=== PATIENT | male | born 1970 | race African-American/Black ===

== ENCOUNTER 2022-02-01 14:36 | Inpatient (IN) | payer MEDICARE, MEDICAID ==
[~2022-02-01] VITALS: Ht 175.3 cm; Wt 72.1 kg
[~2022-02-01 14:36] MED LIST: CHOL100018 PO; DIVA-112 PO; METO50 PO; OLAN10TA74 PO; OMEG-12 PO; SIMV-261 PO
[2022-02-01] MEDS ORDERED: DIVA-80 PO (18:57)
[2022-02-01] MEDS ORDERED: OLAN10TA74 PO (18:57)
[2022-02-01] MEDS ORDERED: LORazepam 2 MG TABLET PO PRN (20:30)
[2022-02-01] MEDS ORDERED: HALOPERIDOL 5 MG TABLET PO PRN (20:30)
[2022-02-01] MEDS ORDERED: CHOL25TA4 PO (20:31)
[2022-02-01] MEDS: ZOLPIDEM TARTRATE 10 MG TABLET PO PRN (21:58)
[2022-02-01 22:00] VITALS: BP 131/98
[2022-02-01] MEDS ORDERED: PNEUMOCOCCAL VACCINE POLYVALENT 0.5 ML VIAL [PPSV23] IM. ONE (22:45)
[2022-02-02] MEDS ORDERED: BENZOCAINE/MENTHOL LOZENGE PO PRN (06:00)
[2022-02-02] MEDS ORDERED: CloNIDine HCL 0.1 MG TABLET PO PRN (06:00)
[2022-02-02] MEDS ORDERED: MAG HYDROX/AL HYDROX/SIMETH ES 30 ML SUSPENSION UDCUP PO PRN (06:00)
[2022-02-02] MEDS ORDERED: LOPERAMIDE HCL 2 MG CAPSULE PO PRN (06:00)
[2022-02-02] MEDS ORDERED: BACITRACIN 28 GM OINTMENT TP PRN (06:00)
[2022-02-02] MEDS ORDERED: ACETAMINOPHEN 325 MG TABLET PO PRN (06:00)
[2022-02-02] MEDS ORDERED: OMEPRAZOLE 20 MG CAPSULE PO PRN (06:00)
[2022-02-02] MEDS ORDERED: PETROLATUM,WHITE 28 GM JELLY TP PRN (06:00)
[2022-02-02] MEDS ORDERED: MAGNESIUM HYDROXIDE SUSPENSION 30 ML UDCUP PO PRN (06:00)
[2022-02-02] MEDS ORDERED: ALBUTEROL SULFATE HFA 90 MCG/PUFF 8 GM INHALER IH PRN (06:00)
[2022-02-02] MEDS ORDERED: ONDANSETRON HCL 4 MG TABLET PO PRN (06:00)
[2022-02-02] MEDS ORDERED: DOCUSATE SODIUM 100 MG CAPSULE PO PRN (06:00)
[2022-02-02] MEDS ORDERED: IBUPROFEN 600 MG TABLET PO PRN (06:00)
[2022-02-02 07:06] LABS: BASOPHILS % (AUTO) 0.4 % (0.0-2.0); EOSINOPHILS % (AUTO) 1.3 % (1.0-6.0); HEMATOCRIT 40.7 % (41-53); HEMOGLOBIN 13.9 g/dL (13.5-17.5); LYMPHOCYTES # (AUTO) 1.4 K/uL (1.0-4.8); LYMPHOCYTES % (AUTO) 27.8 % (22.0-44.0); MEAN CORPUSCULAR HEMOGLOBIN 27.6 pg (26.0-34.0); MEAN CORPUSCULAR HGB CONC 34.3 G/dL (31.0-37.0); MEAN CORPUSCULAR VOLUME 80 fL (80-100); MONOCYTES # (AUTO) 0.4 K/uL (0.1-1.0); MONOCYTES % (AUTO) 6.9 % (2.0-9.0); NEUTROPHILS # (AUTO) 3.3 K/uL (1.8-7.7); NEUTROPHILS % (AUTO) 63.6 % (40.0-70.0); PLATELET COUNT (AUTO) 187 K/uL (150-450); RED BLOOD CELL COUNT(AUTO) 5.06 MIL/uL (4.50-5.90); RED CELL DISTRIBUTION WIDTH 13.9 % (11.5-14.5)
[2022-02-02 07:24] LABS: HEMOGLOBIN A1C 5.3 % (3.8-5.6)
[2022-02-02 07:42] LABS: ALANINE AMINOTRANSFERASE 27 U/L (12-78); ALBUMIN 3.7 g/dL (3.4-5.0); ALKALINE PHOSPHATASE 52 U/L (46-116); ANION GAP 8 mmol/L (8-16); ASPARTATE AMINOTRANSFERASE 16 U/L (15-37); BILIRUBIN,TOTAL 0.3 mg/dL (0.1-1.0); CARBON DIOXIDE 27 mmol/L (22-29); CHLORIDE 106 mmol/L (98-107); CHOL/HDL RATIO 4.6 (4.2-7.3); CHOLESTEROL 215 mg/dL (131-200); CREATININE 0.92 mg/dL (0.60-1.30); FREE T4 (FREE THYROXINE) 0.88 ng/dL (0.76-1.46); GLUCOSE,RANDOM 81 mg/dL (70-110); HDL CHOLESTEROL 47 mg/dL (40-60); LDL CHOL (CALC.) 139 mg/dL (0-130); POTASSIUM 4.2 mmol/L (3.5-5.1); SODIUM SERUM 141 mmol/L (136-145); THYROID STIMULATING HORMONE 1.58 uIU/mL (0.36-3.74); TOTAL PROTEIN, SERUM 7.1 g/dL (6.4-8.2); TRIGLYCERIDES 144 mg/dL (15-150); UREA NITROGEN, BLOOD 12 mg/dL (7-18)
[2022-02-02 08:10] LABS: GLOMERULAR FILTR. RATE CALC > 60 mL/min (>60)
[2022-02-02 08:15] VITALS: BP 119/76
[2022-02-02] MEDS: NICOTINE POLACRILEX 2 MG LOZENGE PO PRN ×2 (16:01→20:17)
[2022-02-02] MEDS: METOPROLOL TARTRATE 50 MG TABLET PO SCH (16:02)
[2022-02-02 16:03] VITALS: BP 132/91
[2022-02-02] MEDS: SIMVASTATIN 40 MG TABLET PO SCH (20:36)
[2022-02-02 20:58] VITALS: BP 132/76
[2022-02-02] MEDS: ZOLPIDEM TARTRATE 10 MG TABLET PO PRN (21:11)
[2022-02-03 00:13] VITALS: BP 134/90
[2022-02-03] MEDS: NICOTINE POLACRILEX 2 MG LOZENGE PO PRN ×3 (00:19→14:24)
[2022-02-03 08:15] VITALS: BP 138/90
[2022-02-03] MEDS: METOPROLOL TARTRATE 50 MG TABLET PO SCH (08:50)
[2022-02-03 20:13] VITALS: BP 130/74
[2022-02-03] MEDS: OLANZapine 10 MG TABLET PO SCH (20:18)
[2022-02-03] MEDS: SIMVASTATIN 40 MG TABLET PO SCH (20:18)
[2022-02-03] MEDS ORDERED: DIVALPROEX SODIUM 500 MG ER TABLET PO SCH (21:00)
[2022-02-04] MEDS: METOPROLOL TARTRATE 50 MG TABLET PO SCH (08:41)
[2022-02-04 08:49] VITALS: BP 112/66
[2022-02-04] MEDS: NICOTINE POLACRILEX 2 MG LOZENGE PO PRN ×2 (11:00→19:10)
[2022-02-04] MEDS: DIVALPROEX SODIUM 500 MG ER TABLET PO SCH ×3 (12:59→21:27)
[2022-02-04 20:21] VITALS: BP 139/82
[2022-02-04] MEDS: OLANZapine 10 MG TABLET PO SCH (20:33)
[2022-02-04] MEDS: SIMVASTATIN 40 MG TABLET PO SCH (20:33)
[2022-02-05 08:05] VITALS: BP 138/79
[2022-02-05] MEDS: DIVALPROEX SODIUM 500 MG ER TABLET PO SCH ×3 (08:46→16:39)
[2022-02-05] MEDS: METOPROLOL TARTRATE 50 MG TABLET PO SCH (08:46)
[2022-02-05] MEDS: NICOTINE POLACRILEX 2 MG LOZENGE PO PRN (12:44)
[2022-02-05] MEDS: OLANZapine 10 MG TABLET PO SCH (20:30)
[2022-02-05] MEDS: SIMVASTATIN 40 MG TABLET PO SCH (20:30)
[2022-02-05 21:21] VITALS: BP 123/84
[2022-02-06 08:58] VITALS: BP 117/60
[2022-02-06 09:16] LABS: GLUCOMETER DEV NAME(LOC) POC.BV
[2022-02-06] MEDS: METOPROLOL TARTRATE 50 MG TABLET PO SCH (09:37)
[2022-02-06] MEDS: DIVALPROEX SODIUM 500 MG ER TABLET PO SCH ×3 (09:37→16:38)
[2022-02-06] MEDS: NICOTINE POLACRILEX 2 MG LOZENGE PO PRN (16:03)
[2022-02-06] MEDS: SIMVASTATIN 40 MG TABLET PO SCH (20:21)
[2022-02-06] MEDS: OLANZapine 10 MG TABLET PO SCH (20:22)
[2022-02-06 21:23] VITALS: BP 133/89
[2022-02-07] MEDS: DIVALPROEX SODIUM 500 MG ER TABLET PO SCH ×2 (08:31→12:51)
[2022-02-07] MEDS: METOPROLOL TARTRATE 50 MG TABLET PO SCH (08:31)
[2022-02-07 09:04] VITALS: BP 135/74
[2022-02-07] MEDS: NICOTINE POLACRILEX 2 MG LOZENGE PO PRN (10:39)
[2022-02-07] MEDS ORDERED: OLAN10 PO (13:15)
[2022-02-07] MEDS ORDERED: DIVA-80 PO (13:15)
== END 2022-02-07 16:14 | disposition home or self-care (01) | DRG 885 ==
LOC: B2X 20:22
PROVIDERS: ADMIT Psychiatry & Neurology Psychiatry; ATTEND Psychiatry & Neurology Psychiatry
DX: F25.9 Schizoaffective disorder, unspecified (principal); R45.851 Suicidal ideations; I10 Essential (primary) hypertension; J44.9 Chronic obstructive pulmonary disease, unspecified; K59.00 Constipation, unspecified; E55.9 Vitamin D deficiency, unspecified; Z20.822 Contact with and (suspected) exposure to COVID-19; E78.5 Hyperlipidemia, unspecified; F15.10 Other stimulant abuse, uncomplicated; Z79.899 Other long term (current) drug therapy; Z87.891 Personal history of nicotine dependence
CPT/HCPCS: 80053; 80061; 80164; 83036; 84439; 84443; 85025; Q9967